=== PATIENT | female | born 1950 | race Two or more races ===

== ENCOUNTER 2018-02-06 15:43 | Emergency (ER) | payer MEDICARE, MEDICAID ==
[~2018-02-06] VITALS: Ht 160 cm; Wt 75.1 kg
[2018-02-06] MEDS ORDERED: OMEG-50 PO (15:59)
[2018-02-06] MEDS ORDERED: AMLO-511 PO (15:59)
[2018-02-06] MEDS ORDERED: PROP50TA3 PO (15:59)
[2018-02-06] MEDS ORDERED: IBUP-2070 PO (15:59)
[2018-02-06] MEDS ORDERED: LORA1TAB3 PO (15:59)
[2018-02-06] MEDS ORDERED: PROP10TA73 PO (15:59)
[2018-02-06] MEDS ORDERED: ATOR40TA28 PO (15:59)
[2018-02-06] MEDS ORDERED: DiphenhydrAMINE HCL 50 MG/ML VIAL IVP ONE (16:15)
[2018-02-06] MEDS ORDERED: DEXAMETHASONE SOD PHOS 4 MG/ML 5 ML VIAL IVP ONE (16:15)
[2018-02-06] MEDS ORDERED: LORazepam 2 MG/ML VIAL IVP ONE (16:30)
[2018-02-06 16:44] LABS: BASOPHILS % (AUTO) 0.2 % (0.0-2.0); EOSINOPHILS % (AUTO) 0.1 % (1.0-6.0); HEMATOCRIT 44.4 % (36-46); HEMOGLOBIN 14.7 g/dL (12.0-16.0); LYMPHOCYTES # (AUTO) 3.5 K/uL (1.0-4.8); LYMPHOCYTES % (AUTO) 23.5 % (22.0-44.0); MEAN CORPUSCULAR HEMOGLOBIN 28.3 pg (26.0-34.0); MEAN CORPUSCULAR HGB CONC 33.1 G/dL (31.0-37.0); MEAN CORPUSCULAR VOLUME 86 fL (80-100); MONOCYTES % (AUTO) 6.6 % (2.0-9.0); NEUTROPHILS # (AUTO) 10.4 K/uL (1.8-7.7); NEUTROPHILS % (AUTO) 69.6 % (40.0-70.0); PLATELET COUNT (AUTO) 231 K/uL (150-450); RED CELL DISTRIBUTION WIDTH 13.5 % (11.5-14.5)
[2018-02-06 16:55] LABS: CALCIUM, TOTAL 9.1 mg/dL (8.8-10.5); CREATININE 1.09 mg/dL (0.60-1.30); POTASSIUM 3.3 mmol/L (3.5-5.1)
[2018-02-06 17:10] LABS: ALBUMIN 4.4 g/dL (3.4-5.0); BILIRUBIN,TOTAL 0.5 mg/dL (0.1-1.0); TOTAL PROTEIN, SERUM 8.3 g/dL (6.4-8.2)
[2018-02-06 18:35] LABS: THYROID STIMULATING HORMONE 1.22 uIU/mL (0.36-3.74)
[2018-02-06] MEDS ORDERED: IOVERSOL 320 MG/ML 100 ML VIAL ONE (19:00)
[2018-02-06] MEDS ORDERED: SODIUM CHLORIDE 0.9% 100 ML ONE (19:00)
[2018-02-06 21:01] VITALS: BP 131/74
== END 2018-02-06 22:10 | disposition home or self-care (01) ==
LOC: EMS 15:44
DX: F41.0 Panic disorder [episodic paroxysmal anxiety] (principal); I10 Essential (primary) hypertension; E05.90 Thyrotoxicosis, unspecified without thyrotoxic crisis or storm; Z88.0 Allergy status to penicillin
CPT/HCPCS: 36415; 70491; 71045; 80053; 83880; 84443; 84484; 85025; 87430; 93005; 96374; 96375; 99285; J1100; J1200; J2060; J7050; Q9967